=== PATIENT | male | born 1980 | race Caucasian/White ===

== ENCOUNTER 2022-09-24 08:30 | Outpatient (CLI) | payer OTHER, SELFPAY | END 2022-09-24 08:31 | disposition home or self-care (01) | PROVIDERS: PCP Family Medicine; Visit Provider Family Medicine | DX: Z00.00 Encounter for general adult medical examination without abnormal findings (principal); E78.5 Hyperlipidemia, unspecified; L40.9 Psoriasis, unspecified; Z13.0 Encounter for screening for diseases of the blood and blood-forming organs and certain disorders involving the immune mechanism; Z11.1 Encounter for screening for respiratory tuberculosis | CPT/HCPCS: 80053; 80061; 86480 ==